=== PATIENT | male | born 1975 | race Two or more races ===

== ENCOUNTER 2023-09-27 21:42 | Emergency (ER) | payer OTHER, SELFPAY ==
--- NOTE | 2023-09-27 | ECG_ITS ---
Test Reason : OD Blood Pressure : / mmHG Vent. Rate : 079 BPM Atrial Rate : 079 BPM P-R Int : 150 ms QRS Dur : 080 ms QT Int : 354 ms P-R-T Axes : 072 069 063 degrees QTc Int : 405 ms Normal sinus rhythm Normal ECG No previous ECGs available Referred By: Karine Rossi Electronically Signed By:RANDEE BOOTHE
[2023-09-27 21:50] VITALS: BP 132/90; PULSE 97; O2SAT 100
[2023-09-27 22:03] VITALS: BP 127/87; PULSE 85; RESP 17; TEMP 36.6; O2SAT 99
[2023-09-27 22:17] VITALS: BP 127/87; PULSE 85; RESP 17; TEMP 36.6; O2SAT 99; BMI 27.1
--- NOTE | 2023-09-27 22:25 | MHC.EDTECH ---
Patient is changed over into hospital attire All belonging are locked into decon Patient is resting in bed Respirations even and unlabored Patient expresses no other needs at this time Call light within reach Plan of care ongoing
--- NOTE | 2023-09-27 22:44 | ED_ITS ---
HPI - Overdose General Chief Complaint: Overdose Stated Complaint: overdose, 2mg narcan given Time Seen by Provider: 09/27/23 21:56 Source: patient and EMS Mode of arrival: EMS Limitations: no limitations History of Present Illness ED Provider: Dr. Karine Rossi HPI Narrative: Patient comes to the emergency room via EMS. According to EMS, patient was on the streets with erratic behavior. Patient may have has syncopal episodes, but unclear. Patient states that earlier today he took a drink from a friend. According to the patient, he did not intended to drink alcohol or drugs. Patient was given 2 mg of Narcan and woke up. Patient states that he is upset of what happened since he does not use drugs. Patient requesting an ETOH and U tox level to know what was on his drink. Patient has chest pain or shortness of breath. Related Data Allergies Allergy/AdvReac Type Severity Reaction Status Date / Time No Known Allergies Allergy Unverified 09/27/23 22:22 Review of Systems 2 Review of Systems: Constitutional : No Weight loss, No Fever, No Chills, No Night Sweats, No Fatigue, No Malaise ENT/Mouth : No Hearing loss, No Ear Pain, No Nasal Congestion, No Sinus Pain, No Hoarseness, No sore throat, No Rhinorrhea, No Swallowing Difficulty Eyes: No Eye Pain, No Swelling, No Redness, No Foreign Body, No Discharge, No Vision Changes Cardiovascular : No Chest Pain, No SOB, No Dyspnea on Exertion, No Orthopnea, No Edema, No Palpitations Respiratory : No Cough, No Sputum, No Wheezing, No Smoke Exposure, No Dyspnea Gastrointestinal : No Nausea, No Vomiting, No Diarrhea, No Constipation, No abdominal Pain, No Hematochezia, No Melena Genitourinary : no irregular bleeding, No Dysuria, No Urinary Frequency, No Hematuria, No Urinary Incontinence, No Urgency, No Flank Pain, No Urinary Flow Changes, No Hesitancy Musculoskeletal : No joint pain, No Myalgias, No Joint Swelling Skin : No Skin Lesions, No rash Neuro : No Weakness, No Numbness, No Paresthesias, complaining of an episode of loss of consciousness, unclear if he is drugs. Psych : No Anxiety/Panic, No Depression, No SI/HI/AH/VH, No Social Issues, Heme/Lymph: No Bruising, No Bleeding,No Lymphadenopathy Endocrine : No Polyuria, No Polydipsia, No Temperature Intolerance Physical Exam 2 Vital Signs: Vital Signs: Last Vital Signs Temp 97.8 F 09/27/23 22:17 Pulse 85 09/27/23 22:17 Resp 17 09/27/23 22:17 BP 127/87 09/27/23 22:17 Pulse Ox 99 09/27/23 22:17 O2 Del Method Room Air 09/27/23 22:17 BMI result Body Mass Index 27.1 Const: Other: Appearance: Alert. Oriented X3. No acute distress. Eyes: Pupils equal, round and reactive to light. ENT: Pharynx normal. Neck: Normal inspection. Neck supple. No lymph nodes noted. No crepitus CVS: Normal heart rate and rhythm. Pulses normal. Normal S1 and S2 Respiratory: No respiratory distress. Breath sounds normal. No Wheezing. No rales Abdomen: Soft and nontender. No rigidity. No distention. Skin: Skin warm and dry. Normal skin color. Normal skin turgor. Extremities: No lower extremity edema. No Lacerations. No Rash Neuro: Oriented X 3. No motor deficit. No sensory deficit. Moving all extremities. No slurred speech. CN 2 through 12 grossly intact Psych: calm, cooperative, normal affect Course Course Course Narrative: -all of patient's labs pending. Patient requesting U tox and EtOH level since he did not intend to use drugs and alcohol since he has to work tonight. -all of patient's vitals are stable Medical Decision Making Medical Decision Making [facility] Narrative: -my interpretation of EKG, normal sinus rhythm, heart rate 79, no ST segment depression or elevation, no T-wave inversion, QTC 405 -at 23:08, patient stated that he did use drugs on purpose. Patient states that he does not want any blood work. Patient states that he feels well and he will likely be discharged. -since patient arrived, patient has been awake, alert and oriented x3, ambulatory with steady gait, clinically sober, no oxygen desaturations. -patient respectfully declined any further care, states he is embarrassed about lying and would like to be discharged Differential Diagnosis Differential Diagnoses: The differential diagnosis associated with the presentation includes (Overdose, PE, ACS) Lab Data [facility] Lab Attestation statement: I reviewed the patient's lab results. 09/27/23 22:54 09/27/23 22:54 Labs: Lab Results 09/27/23 Range/Units 22:54 WBC 12.2 H (4.8-10.8) X10*3/uL RBC 4.27 L (4.60-5.80) X10*6/uL Hgb 13.4 L (14.0-18.0) g/dl Hct 38.5 L (42.0-52.0) % MCV 90.2 (80.0-98.0) fL MCH 31.4 (27.0-33.0) pg MCHC 34.8 (31.0-36.0) g/dl RDW 14.6 (11.0-16.0) % Plt Count 245 (160-400) X10*3/uL MPV 10.6 (9.4-12.4) fL Immature Gran % (Auto) 0.6 H (0.0-0.4) % Neut % (Auto) 71.0 (45-73) % Lymph % (Auto) 15.8 L (20-40) % Maury % (Auto) 9.4 (2-11) % Eos % (Auto) 2.5 (0-4) % Baso % (Auto) 0.7 (0-2) % Lymph # (Auto) 1.9 (1.2-4.9) X10*3/uL Maury # (Auto) 1.2 (0.1-1.2) X10*3/uL Eos # (Auto) 0.3 (0.0-0.4) X10*3/uL Baso # (Auto) 0.1 (0.0-0.2) X10*3/uL Abs Immat Gran (auto) 0.07 H (0.00-0.03) X10*3/uL Absolute Neuts (auto) 8.7 H (2.0-8.3) x10*3/uL Absolute Nucleated RBC 0.000 (0.0-0.012) X10*3/uL Nucleated RBC % (auto) 0.0 (0.0-0.2) /100WBC Discharge Plan Discharge Clinical Impression: Drug overdose Patient Disposition: Home, Self-Care Instructions: Adult Overdose (ED) Additional Instructions: Please follow-up with your primary care physician tomorrow. If you have any worsening or new symptoms, please return to the emergency room or call 911
[2023-09-27 23:00] LABS: Basophils Absolute Auto 0.1 X10*3/uL (0.0-0.2); Basophils Percent Auto 0.7 % (0-2); Eosinophils Absolute Auto 0.3 X10*3/uL (0.0-0.4); Eosinophils Percent Auto 2.5 % (0-4); Hematocrit 38.5 % (42.0-52.0); Hemoglobin 13.4 g/dl (14.0-18.0); Imm Gran Abs Auto 0.07 X10*3/uL (0.00-0.03); Imm Gran Pct Auto 0.6 % (0.0-0.4); Lymphocytes Absolute Auto 1.9 X10*3/uL (1.2-4.9); Lymphocytes Percent Auto 15.8 % (20-40); MANUAL DIFF FLAG NO; Mean Corpuscular HGB Conc 34.8 g/dl (31.0-36.0); Mean Corpuscular Hemoglobin 31.4 pg (27.0-33.0); Mean Corpuscular Volume 90.2 fL (80.0-98.0); Mean Platelet Volume 10.6 fL (9.4-12.4); Monocytes Absolute Auto 1.2 X10*3/uL (0.1-1.2); Monocytes Percent Auto 9.4 % (2-11); Neutrophils Absolute Auto 8.7 x10*3/uL (2.0-8.3); Platelet Count 245 X10*3/uL (160-400); Red Blood Count 4.27 X10*6/uL (4.60-5.80); Red Cell Distribution Width 14.6 % (11.0-16.0); White Blood Count 12.2 X10*3/uL (4.8-10.8)
[2023-09-27 23:11] LABS: Amphetamine Screen Urine Not Detected (Not Detect); Barbiturates, Urine Not Detected (Not Detect); Benzodiazepines Screen Urine Not Detected (Not Detect); Buprenorphine Scr Not Detected (Not Detect); Cannabinoid Screen Urine POSITIVE (Not Detect); Cocaine Screen Urine Not Detected (Not Detect); Fentanyl, urine POSITIVE (Not Detect); Methadone Screen, Urine Not Detected (Not Detect); Opiate Screen Urine POSITIVE (Not Detect); Oxycodone Screen Urine Not Detected (Not Detect); Phencyclidine Screen Urine Not Detected (Not Detect)
[2023-09-27 23:12] LABS: Anion Gap 11 (12-20); Blood Urea Nitrogen 15 mg/dL (9-16); Calcium 9.3 mg/dL (8.4-10.2); Carbon Dioxide 25 mmol/L (22-29); Chloride 108 mmol/L (96-108); Creatinine Clr Calc Pharmacy 102.2; Estimated Glomerular Filt Rate > 60; Ethanol < 10 mg/dL; Glucose Random 98 mg/dL (60-115); Sodium 140 mmol/L (135-145)
[2023-09-27 23:19] LABS: Troponin-I High Sensitivity 3.5 ng/L (<3.5-35.0)
[2023-09-27 23:23] VITALS: BP 118/73; PULSE 85; RESP 17; TEMP 36.6; O2SAT 98
[2023-09-28 00:36] VITALS: BP 118/73; PULSE 88; RESP 17; TEMP 36.6; O2SAT 98
== END 2023-09-28 00:01 | disposition home or self-care (01) ==
PROVIDERS: Emergency Provider Emergency Medicine; PCP Internal Medicine
DX: T50.901A Poisoning by unspecified drugs, medicaments and biological substances, accidental (unintentional), initial encounter (principal); Y92.9 Unspecified place or not applicable; Z79.899 Other long term (current) drug therapy
CPT/HCPCS: 36415; 80048; 80307; 84484; 85025; 93005; 99283

== ENCOUNTER → 2023-09-27 22:43 | Outpatient (BNV) | payer OTHER, SELFPAY | PROVIDERS: Emergency Provider Emergency Medicine; PCP Internal Medicine; Visit Provider Internal Medicine | DX: T50.992A Poisoning by other drugs, medicaments and biological substances, intentional self-harm, initial encounter (principal) | CPT/HCPCS: 93010 ==